=== PATIENT | male | born 1990 | race Caucasian/White ===

== ENCOUNTER 2017-07-28 07:39 | Emergency (ER) | payer MEDICARE ==
[~2017-07-28] VITALS: Ht 193 cm; Wt 120.7 kg
[~2017-07-28 07:39] MED LIST: ADDERALL 20 MG20 M1 PO; ADDERALL XR 2020 MG PO; CIPRO500 MG PO; FLOMAX0.4 MG PO; HYDROCODON-ACE1 EAC7 PO; HYDROCODONE-AP1 EAC6 PO; HYDROCODONE-APA1 TA1 PO; IBUPROFEN 800800 M1 PO; LEVSIN0.125 MG PO; NEXIUM40 MG PO; NORCO 5-325 TA1 EACH PO; NORVASC5 MG PO; ONDANSETRON HCL4 M2 PO; PHENAZOPYRIDIN200 M2 PO; PROZAC10 MG PO; PROZAC40 MG PO; RAPAFLO4 MG; ZOFRAN ODT4 MG PO
[2017-07-28] MEDS ORDERED: LIPITOR 20 MG T20 M1 PO (07:47)
[2017-07-28 07:58] LABS: URINE BILIRUBIN NEGATIVE (Negative); URINE BLOOD 1+ (Negative); URINE CLARITY CLEAR; URINE COLOR YELLOW; URINE GLUCOSE-RANDOM NEGATIVE (Negative); URINE KETONES NEGATIVE (Negative); URINE LEUKOCYTES-REFLEX 1+ (Negative); URINE NITRITE-REFLEX NEGATIVE (Negative); URINE PROTEIN NEGATIVE (Negative); URINE SPECIFIC GRAVITY 1.025 (1.005-1.030); URINE UROBILINOGEN 0.2 E.U./dl (0.2-1.0)
[2017-07-28 08:07] LABS: CASTS None Seen /LPF (None Seen); CRYSTALS None Seen /LPF (None Seen); MUCUS None Seen strn/LPF (None Seen); SQUAMOUS 0-3 Few /LPF (0-3); URINE RBC 3-10 Few /HPF (0-2)
[2017-07-28 08:16] LABS: ABSOLUTE EOSINOPHILS 0.1 thou/uL (0.0-0.7); ABSOLUTE LYMPHOCYTES 1.3 thou/uL (0.8-5.3); ABSOLUTE MONOCYTES 0.5 thou/uL (0.0-1.2); ABSOLUTE NEUTROPHILS 4.5 thou/uL (1.6-8.1); BASOPHILS 0.7 %; EOSINOPHILS 1.3 %; HEMATOCRIT 41.5 % (42.0-52.0); HEMOGLOBIN 14.2 gm/dL (14.0-18.0); MCH 28.7 pg (26.0-34.0); MCHC 34.1 g/dL (28.0-37.0); MCV 84.1 fL (80.0-100.0); MONOCYTES 8.5 %; MPV 7.9 fl. (7.2-11.1); NUCLEATED RBCS 0 /100WBC; PLATELET COUNT* 194 thou/uL (150-400); POLYS 69.5 %; RBC 4.94 mil/uL (4.50-6.00); RDW-CV 13.7 % (10.5-14.5); WBC 6.4 thou/uL (4.0-11.0)
[2017-07-28 08:24] LABS: CREATININE 1.1 mg/dL (0.6-1.3); POTASSIUM 3.8 mmol/L (3.5-5.1)
[2017-07-28 08:29] LABS: ALBUMIN 3.9 g/dL (3.4-5.0); TOTAL BILIRUBIN 0.3 mg/dL (<0.1-1.0); TOTAL PROTEIN 7.2 g/dL (6.4-8.2)
[2017-07-28 08:49] VITALS: BP 137/82
== END 2017-07-28 08:50 | disposition home or self-care (01) ==
LOC: M.ERS 07:39
PROVIDERS: Personal Emergency Response Attendant
DX: N23 Unspecified renal colic (principal); F84.0 Autistic disorder; I10 Essential (primary) hypertension; E78.00 Pure hypercholesterolemia, unspecified

== ENCOUNTER 2018-07-18 10:39 | Inpatient (IN) | payer MEDICARE, MEDICAID ==
[~2018-07-18] VITALS: Ht 190.5 cm; Wt 101.6 kg
--- NOTE | ~2018-07-18 | OP ---
[address] [address] OPERATIVE REPORT Name: ARMINHARRISONDENISE Room: [address] IN [facility]#: [id number] Admission: 07/18/18 Attend Phys: Lucio Roa MD Discharge: Date of : 86 Report #: [id number] THIS REPORT FOR: //name// CC: Adam Roa SURGEON: Rajat Abreu MD PREOPERATIVE DIAGNOSIS: Large right ureteral stone, 9 mm. POSTOPERATIVE DIAGNOSIS: Large right ureteral stone, 9 mm. PROCEDURES: Panendoscopy and cystoscopy, right retrograde pyelogram, right ureteroscopy and holmium laser stone, extraction of stone and double-J stent. COMPLICATIONS: No complications. INDICATIONS: This is a 28-year-old white male with a history of severe right flank pain, found to have a 9 mm upper ureteral stone. He has had multiple stones in the past. He also has a left lower pole stone. He was given all options for treatment and wished to have an ureteroscopy with laser stone and extraction. He understands the risk of bleeding, infection, procedures, the fact that he may need additional procedures for this stone, ureteral stricture, cardiovascular and pulmonary complications and wished to proceed. DESCRIPTION OF PROCEDURE: Informed consent was obtained. The patient was sterilely prepped and draped in dorsal lithotomy position and given preoperative antibiotics. Cystoscopy was carried out. No abnormalities were seen in the bladder or prostate. Right ureteral orifice was slightly small. Retrograde pyelogram was performed showing the filling defect from the ureter, in the ureter and the proximal ureter, no other abnormalities were seen. He had somewhat of a small ureteral orifice, so the only ureteral balloon dilator that was in the hospital was a 21-Vincentian x 4 cm. Ureteral balloon dilator had very carefully and very gently under minor, very mild hand pressure stretched up the ureteral orifice. I then placed a sensor wire and ZIPwire and then a ureteral access sheath. An 11 x 13 x 36 ureteral access sheath was placed and secured. Then, flexible ureteroscopy was carried out. The stone was seen in the proximal ureter, but it was nudged back into the upper pole yuli. It was then progressively broken up using the 200 micron laser fiber at the 10 watt power setting. It was a hard stone, but I was able to break up into pieces small enough to extract using a 0 tip nitinol basket. After multiple pieces were removed after 30-40 passes, I then dusted the remaining fragments into pieces that were 1 or 2 mm in size. I then looked in all the other calices, I could not find any. He did have a known lower pole stone, but I could not access that with the ureteroscope. At that point, the procedure was terminated. A 4.8 x 28 stent was placed showing good curl in the kidney and good curl in the bladder. Plan will be to see the patient in the office in 1 week [place] [address] OPERATIVE REPORT Name: DENISE EGAN Room: [address] IN [facility].#: [id number] Admission: 07/18/18 Attend Phys: Lucio Roa MD Discharge: Date of : 86 Report #: [id number] in 7-10 days and then he will need a repeat metabolic workup and then he is going to need other treatment for either the lower pole stone on the right or his large left lower pole stone. By: [id number] Abreu MD /shannan
[~2018-07-18 10:39] MED LIST changes: -HYDROCODONE-APA1 TA1 PO; +LIPITOR 20 MG T20 M1 PO; +NORCO 7.5-3251 EACH PO
[2018-07-18 10:57] VITALS: BP 144/88
[2018-07-18 11:11] LABS: ABSOLUTE EOSINOPHILS 0.1 thou/uL (0.0-0.7); ABSOLUTE LYMPHOCYTES 1.2 thou/uL (0.8-5.3); ABSOLUTE NEUTROPHILS 6.2 thou/uL (1.6-8.1); BASOPHILS 0.6 %; EOSINOPHILS 0.8 %; HEMATOCRIT 43.2 % (42.0-52.0); HEMOGLOBIN 14.8 gm/dL (14.0-18.0); LYMPHOCYTES 13.8 %; MCH 28.9 pg (26.0-34.0); MCHC 34.2 g/dL (28.0-37.0); MCV 84.6 fL (80.0-100.0); MONOCYTES 11.9 %; MPV 7.4 fl. (7.2-11.1); NUCLEATED RBCS 0 /100WBC; PLATELET COUNT* 197 thou/uL (150-400); POLYS 72.9 %; RBC 5.11 mil/uL (4.50-6.00); RDW-CV 13.7 % (10.5-14.5); WBC 8.4 thou/uL (4.0-11.0)
[2018-07-18 11:18] LABS: CALCIUM 9.6 mg/dL (8.5-10.1); POTASSIUM 4.3 mmol/L (3.5-5.1)
[2018-07-18 11:22] LABS: ALBUMIN 4.1 g/dL (3.4-5.0); TOTAL BILIRUBIN 0.4 mg/dL (<0.1-1.0); TOTAL PROTEIN 7.8 g/dL (6.4-8.2)
[2018-07-18 13:31] LABS: URINE BILIRUBIN NEGATIVE (Negative); URINE BLOOD 1+ (Negative); URINE CLARITY CLEAR; URINE COLOR YELLOW; URINE GLUCOSE-RANDOM NEGATIVE (Negative); URINE KETONES NEGATIVE (Negative); URINE LEUKOCYTES-REFLEX 1+ (Negative); URINE NITRITE-REFLEX POSITIVE (Negative); URINE PROTEIN NEGATIVE (Negative); URINE SPECIFIC GRAVITY 1.015 (1.005-1.030); URINE UROBILINOGEN 0.2 E.U./dl (0.2-1.0)
[2018-07-18 13:36] LABS: BACTERIA-REFLEX >30 Many /HPF (None Seen); CASTS None Seen /LPF (None Seen); CRYSTALS None Seen /LPF (None Seen); MUCUS 0-3 Light strn/LPF (None Seen); SQUAMOUS 0-3 Few /LPF (0-3); URINE RBC 3-10 Few /HPF (0-2); URINE WBC-REFLEX 0-5 Rare /HPF (0-5)
[2018-07-18 14:47] LABS: CALCIUM 9.5 mg/dL (8.5-10.1); PHOSPHORUS* 3.4 mg/dL (2.5-4.9)
[2018-07-18 17:52] VITALS: BP 111/58
[2018-07-18 18:15] VITALS: BP 148/91
--- NOTE | 2018-07-18 18:41 | NUR ---
PATIENT CAME TO THE FLOOR FROM THE ER VIA CART IN STABLE CONDITION. VITAL SIGNS STABLE ON ROOM AIR. PATIENT IS VERY NAUSEATED, ZOFRAN GIVEN. ROOM ORIENTATION AND ADMISSION ASSESSMENT DONE. CALL LIGHT IS IN REACH, QUESTIONS ANSWERED FOR PATIENT AND MOTHER.
[2018-07-18 20:40] VITALS: BP 152/87
--- NOTE | 2018-07-19 06:12 | NUR ---
PT ALERT AND ORIENTED. VSS ON RA. ASSESSMENT COMPLETED AND DOCUMENTED. PAIN MEDS AND NAUSEA MEDS GIVEN THIS SHIFT. EMESIS NOTED THIS SHIFT. PROMETHAZINE GIVEN. RELIEF NOTED. NAUSEA UNRELIEVED BY LUCY THIS AM. DOCTOR NOTIFIED. NO NEW ORDERS AT THIS TIME. NPO AFTER MIDNIGHT. CALL LIGHT WITHIN REACH. HOURLY ROUNDINGS MADE. WILL CONTINUE TO MONITOR.
[2018-07-19 09:40] VITALS: BP 128/83
--- NOTE | 2018-07-19 12:43 | NUR ---
SW called and spoke with pt mother to complete initial assessment, introduce self, and SW role. Pt was in surgery at the time. Pt lives at home with his parents and pt mother does not anticipate any dc needs at this time. SW to remain available to assist with safe dc planning if needs arise.
[2018-07-19 15:45] VITALS: BP 125/79
--- NOTE | 2018-07-19 15:58 | NUR ---
pt has returned from pacu. o2 at 6l per nc with sat monitor on.sat is 96. pt did desat after standing to void. pt rests in bed and has fallen off to sleep. hob elevated with better sat. pt also having dry cough and is encouraged to cough and deep breath.pt voided 200 clear light red urine while assisted to stand at side of bed.bed alarm on and mother at bedside.
--- NOTE | 2018-07-19 18:45 | NUR ---
PT HAS TOLERATED SUPPER WELL. PAIN CONTROLLED WITH IV MEDICATION. O2 CONTINUES AT 6L PER VENTI MASK WITH SAT 91-92. PT UP TO BATHROOM AND VOIDS WELL,CLEAR RED URINE. PT IS ALERT AND ORIENTATED AND MOTHER AT SIDE.
[2018-07-20 09:00] VITALS: BP 135/75
[2018-07-20] MEDS ORDERED: SENNA S TABLET1 EACH PO (11:07)
[2018-07-20] MEDS ORDERED: FLOMAX0.4 MG PO (11:07)
[2018-07-20] MEDS ORDERED: CIPRO500 MG PO (11:08)
[2018-07-20 15:19] VITALS: BP 135/75
--- NOTE | 2018-07-20 20:02 | NUR ---
I ASSUMED CARE OF THE PATIENT AT 0700. HE IS ALERT AND ORIENTED X4 AND IS UP AD DMITRIY. BED IS IN THE LOW LOCKED POSITION AND CALL LIGHT IS IN REACH. MOM IS AT THE BEDSIDE. HOURLY ROUNDING WAS COMPLETED AND PATIENT NEEDS ARE MET. PAIN IS MANAGED WITH PRN MEDS. PATIENT IS DISCHARGED TO HOME WITH PARENTS AT 1545.
[2018-07-22 15:10] LABS: STONE CA OXALATE MONOHYDRATE 25 % (()); STONE CALCIUM PHOSPHATE 75 % (()); STONE COLOR Tan (()); STONE WEIGHT 30.3 mg (())
== END 2018-07-20 15:45 | disposition home or self-care (01) | DRG 660 ==
LOC: M.ERS 10:39 → M.TBA-ER 14:02 → M.ORTHSURG 14:02
PROVIDERS: Nurse Practitioner Family; ADMIT Internal Medicine
PROC: BT1D1ZZ Fluoroscopy of Right Kidney, Ureter and Bladder using Low Osmolar Contrast (ICD-10-PCS; principal; 2018-07-19)
PROC: 0TC68ZZ Extirpation of Matter from Right Ureter, Via Natural or Artificial Opening Endoscopic (ICD-10-PCS; principal; 2018-07-19)
PROC: 0T768DZ Dilation of Right Ureter with Intraluminal Device, Via Natural or Artificial Opening Endoscopic (ICD-10-PCS; principal; 2018-07-19)
DX: N20.2 Calculus of kidney with calculus of ureter (principal); F84.0 Autistic disorder; N39.0 Urinary tract infection, site not specified; I10 Essential (primary) hypertension; E78.00 Pure hypercholesterolemia, unspecified; K21.9 Gastro-esophageal reflux disease without esophagitis; E78.5 Hyperlipidemia, unspecified; F32.9 Major depressive disorder, single episode, unspecified; Z79.899 Other long term (current) drug therapy

== ENCOUNTER 2018-11-22 22:13 | Observation (INO) | payer MEDICARE, MEDICAID ==
[~2018-11-22] VITALS: Ht 182.9 cm; Wt 118.8 kg
[~2018-11-22 22:13] MED LIST changes: -NEXIUM40 MG PO; +SENNA S TABLET1 EACH PO
[2018-11-22] MEDS ORDERED: HYDROCHLOROTHIA25 M2 PO (22:24)
[2018-11-22] MEDS ORDERED: ONDANSETRON HCL4 M2 (22:25)
[2018-11-22] MEDS ORDERED: OMEPRAZOLE 20 M20 M1 PO (22:25)
[2018-11-22 22:26] VITALS: BP 147/86
[2018-11-22 22:43] LABS: URINE BILIRUBIN NEGATIVE (Negative); URINE BLOOD 3+ (Negative); URINE CLARITY SL CLOUDY; URINE COLOR YELLOW; URINE GLUCOSE-RANDOM NEGATIVE (Negative); URINE KETONES NEGATIVE (Negative); URINE LEUKOCYTES-REFLEX NEGATIVE (Negative); URINE NITRITE-REFLEX NEGATIVE (Negative); URINE PROTEIN TRACE (Negative); URINE SPECIFIC GRAVITY 1.015 (1.005-1.030); URINE UROBILINOGEN 0.2 E.U./dl (0.2-1.0)
[2018-11-22 23:02] LABS: CASTS None Seen /LPF (None Seen); SQUAMOUS 0-3 Few /LPF (0-3); URINE RBC >20 Many /HPF (0-2); URINE WBC-REFLEX 0-5 Rare /HPF (0-5)
[2018-11-22 23:03] LABS: BACTERIA-REFLEX 1-9 Few /HPF (None Seen)
[2018-11-22 23:04] LABS: AMORPHOUS PHOSPHATES Moderate /LPF (None Seen)
[2018-11-23] VITALS (7 sets, daily range): BP systolic 114–140; BP diastolic 67–83
--- NOTE | 2018-11-23 05:32 | NUR ---
PATIENT ARRIVED TO UNIT BY CART FROM ER AT 0130 ACCOMPANIED BY MOTHER WHO IS HIS GUARDIAN (AND FATHER) DUE TO AUTISM. UP INDEPENDENTLY IN ROOM. VOIDS STRAINED. NPO. IVF'S PER ORDER. MEDICATED FOR PAIN X 1 TO GOOD EFFECT. UROLOGY CONSULT THIS AM. VITAL SIGNS STABLE. CONTINUE TO MONITOR.
--- NOTE | 2018-11-23 08:06 | NUR ---
2499 ASSUMED CARE OF PATIENT. PLEASE SEE DOCUMENTED ASSESSMENT. PT RATES PAIN ZERO. INSTRUCTED NPO. MOTHER PRESENT
[2018-11-23 08:25] LABS: HEMATOCRIT 38.5 % (42.0-52.0); HEMOGLOBIN 12.9 gm/dL (14.0-18.0); MCH 28.6 pg (26.0-34.0); MCHC 33.5 g/dL (28.0-37.0); MCV 85.3 fL (80.0-100.0); MPV 7.4 fl. (7.2-11.1); RBC 4.51 mil/uL (4.50-6.00); RDW-CV 14.3 % (10.5-14.5); WBC 8.7 thou/uL (4.0-11.0)
[2018-11-23 08:39] LABS: ALBUMIN 3.8 g/dL (3.4-5.0); CALCIUM 8.8 mg/dL (8.5-10.1); POTASSIUM 3.7 mmol/L (3.5-5.1); TOTAL BILIRUBIN 0.4 mg/dL (<0.1-1.0); TOTAL PROTEIN 6.6 g/dL (6.4-8.2)
--- NOTE | 2018-11-23 10:15 | NUR ---
TO HOLDING AREAPERBED.
--- NOTE | 2018-11-23 12:56 | NUR ---
1245 RECEIVED PATIENT FROM PACU ALRT AND AWAKE. GIVEN LUNCH TRAY
[2018-11-23] MEDS ORDERED: FLOMAX0.4 MG PO (13:52)
[2018-11-23] MEDS ORDERED: ONDANSETRON HCL4 M2 PO (13:52)
[2018-11-23] MEDS ORDERED: NORCO 7.5-3251 EACH PO (13:52)
[2018-11-23] MEDS ORDERED: OXYBUTYNIN 5 MG5 M2 PO (13:52)
[2018-11-23] MEDS ORDERED: CIPRO500 MG PO (13:52)
[2018-11-23] MEDS ORDERED: NORCO 5-325 TA1 EAC1 PO (14:07)
[2018-11-23] MEDS ORDERED: BACTRIM DS TAB1 EACH PO (14:09)
[2018-11-23] MEDS ORDERED: PHENAZOPYRIDIN200 M2 PO (14:11)
[2018-11-23] MEDS ORDERED: NEXIUM40 MG PO (15:22)
--- NOTE | 2018-11-23 16:18 | NUR ---
1605 DISCHARGED AMBULATORY
== END 2018-11-23 16:05 | disposition home or self-care (01) ==
LOC: M.ERS 22:13 → M.ORTHSURG 11-23 00:10 → M.TBA-ER 11-23 00:10 → M.ORTHSURG 11-23 00:10
PROVIDERS: Emergency Medicine; Family Medicine; ADMIT Internal Medicine
DX: N20.1 Calculus of ureter (principal); F84.0 Autistic disorder; I10 Essential (primary) hypertension; E78.00 Pure hypercholesterolemia, unspecified; Z88.5 Allergy status to narcotic agent; Z88.8 Allergy status to other drugs, medicaments and biological substances